=== PATIENT | female | born 1950 | race Caucasian/White ===

== ENCOUNTER 2017-11-05 10:31 | Emergency (ER) | payer MEDICARE, OTHER ==
[~2017-11-05] VITALS: Ht 165.1 cm; Wt 76.7 kg
[2017-11-05] MEDS ORDERED: OMEGA-31000 M1 PO (10:36)
[2017-11-05] MEDS ORDERED: SYNTHROID50 MCG PO (10:36)
[2017-11-05] MEDS ORDERED: HAIR SKIN NAIL1 EACH PO (10:36)
[2017-11-05] MEDS ORDERED: TENORMIN25 MG PO (10:36)
[2017-11-05 10:54] LABS: ABSOLUTE BASOPHILS 0.1 thou/uL (0.0-0.2); ABSOLUTE EOSINOPHILS 0.3 thou/uL (0.0-0.7); ABSOLUTE LYMPHOCYTES 2.9 thou/uL (0.8-5.3); ABSOLUTE MONOCYTES 0.7 thou/uL (0.0-1.2); ABSOLUTE NEUTROPHILS 4.6 thou/uL (1.6-8.1); BASOPHILS 0.7 %; EOSINOPHILS 3.8 %; HEMATOCRIT 43.7 % (37.0-47.0); MCH 30.3 pg (26.0-34.0); MCHC 34.2 g/dL (28.0-37.0); MCV 88.4 fL (80.0-100.0); MONOCYTES 7.6 %; MPV 8.1 fl. (7.2-11.1); NUCLEATED RBCS 0 /100WBC; PLATELET COUNT* 237 thou/uL (150-400); POLYS 53.9 %; RBC 4.94 mil/uL (4.20-5.00); RDW-CV 13.4 % (10.5-14.5); WBC 8.6 thou/uL (4.0-11.0)
[2017-11-05 11:03] LABS: ANION GAP 11 mmol/L (7-16); BUN 13 mg/dL (7-18); CALCIUM 9.4 mg/dL (8.5-10.1); CHLORIDE 102 mmol/L (98-107); CO2 30 mmol/L (21-32); CREATININE 0.8 mg/dL (0.6-1.3); GLUCOSE 116 mg/dL (70-99); POTASSIUM 3.7 mmol/L (3.5-5.1); SODIUM 143 mmol/L (136-145)
[2017-11-05 11:05] LABS: APTT 25.7 Seconds (25.0-31.3); INR 1.1
[2017-11-05 11:19] LABS: ALBUMIN 4.1 g/dL (3.4-5.0); ALKALINE PHOSPHATASE 54 U/L (46-116); CK-MB MASS 0.8 ng/mL (<0.5-3.6); LIPASE 105 U/L (73-393); NT-PRO BRAIN NAT PEPTIDE 100 pg/mL (<300); SGOT 23 U/L (15-37); SGPT 35 U/L (30-65); TOTAL BILIRUBIN 0.6 mg/dL (<0.1-1.0); TOTAL PROTEIN 7.4 g/dL (6.4-8.2); TROPONIN-I LEVEL <0.06 ng/mL (<0.06)
[2017-11-05 11:42] VITALS: BP 152/67
--- NOTE | 2017-11-05 16:26 | EKG ---
[place] [address] ELECTROCARDIOGRAM REPORT Name: STACIE ROBBINS Room: [facility]#: [id number] Admission: 11/05/17 Attend Phys: Discharge: 11/05/17 Date of : 52 Report #: [id number] THIS REPORT FOR: //name// [facility] ED Test Date: 2017-11-05 Test Time: 10:35:47 Pat Name: STACIE ROBBINS Department: Room: Gender: F Protective Officer: ARMANDO : 1950 Requested By: Garry Gutierrez Order Number: [id number] MD: Duong Mayes Measurements Intervals Letts Rate: 52 P: 15 IL: 155 QRS: -12 QRSD: 97 T: 8 QT: 426 QTc: 397 Interpretive Statements Sinus rhythm Low voltage, precordial leads Probable left ventricular hypertrophy Anterior Q waves, possibly due to LVH No previous ECG available for comparison Electronically Signed On 11-05-2017 16:26:22 CDT by Duong Mayes [email or web address] <ELECTRONICALLY SIGNED> By: Duong Mayes MD, [facility] 11/05/17 1626 1035 1035 Duong Mayes MD, [facility] /EPI
== END 2017-11-05 11:43 | disposition home or self-care (01) ==
LOC: M.ERS 10:31
PROVIDERS: Family Medicine
DX: R07.89 Other chest pain (principal); I10 Essential (primary) hypertension; Z88.8 Allergy status to other drugs, medicaments and biological substances

== ENCOUNTER → 2018-04-06 | Outpatient (CLI) | payer MEDICARE, OTHER ==
[~2018-04-06] MED LIST: HAIR SKIN NAIL1 EACH PO; OMEGA-31000 M1 PO; SYNTHROID50 MCG PO; TENORMIN25 MG PO
== END ==
LOC: M.RAD 10:29
DX: Z12.31 Encounter for screening mammogram for malignant neoplasm of breast (principal); I10 Essential (primary) hypertension